=== PATIENT | female | born 1940 | race Caucasian/White ===

== ENCOUNTER 2017-06-30 09:54 | Outpatient (CLI) | payer OTHER | END 2017-06-30 09:57 | disposition home or self-care (01) | LOC: RAD 09:54 | DX: R13.0 Aphagia (principal); Z01.818 Encounter for other preprocedural examination ==

== ENCOUNTER → 2017-06-30 | Outpatient (CLI) | payer OTHER ==
[~2017-06-30] MED LIST: ATORVASTATIN CA10 MG PO; CLORAZEPATE DI7.5 MG PO; EFFEXOR XR150 MG PO; METFORMIN HCL500 MG PO; RAMIPRIL1.25 MG PO; ZANTAC150 M3 PO
== END | disposition home or self-care (01) ==
LOC: LAB 09:47
DX: R19.03 Right lower quadrant abdominal swelling, mass and lump (principal); R97.1 Elevated cancer antigen 125 [CA 125]; Z01.818 Encounter for other preprocedural examination; D64.89 Other specified anemias; N39.0 Urinary tract infection, site not specified; R79.89 Other specified abnormal findings of blood chemistry; R79.1 Abnormal coagulation profile

== ENCOUNTER 2017-07-10 07:03 | Inpatient (IN) | payer OTHER ==
[2017-07-11] MEDS ORDERED: COLACE100 MG PO (07:34)
[2017-07-11] MEDS ORDERED: ULTRAM50 MG PO (07:36)
== END 2017-07-11 12:01 | DRG 743 ==
LOC: CIR.AMB 07:03 → OB/GYN 14:34 → O/R 14:34 → CIR.AMB 15:45 → OB/GYN 17:48
PROVIDERS: Obstetrics & Gynecology Gynecologic Oncology
PROC: 0UT24ZZ Resection of Bilateral Ovaries, Percutaneous Endoscopic Approach (ICD-10-PCS; 2017-07-10)
PROC: 0UT74ZZ Resection of Bilateral Fallopian Tubes, Percutaneous Endoscopic Approach (ICD-10-PCS; 2017-07-10)
PROC: 0DBU4ZZ Excision of Omentum, Percutaneous Endoscopic Approach (ICD-10-PCS; 2017-07-10)
PROC: 0TN74ZZ Release Left Ureter, Percutaneous Endoscopic Approach (ICD-10-PCS; 2017-07-10)
PROC: 0TN64ZZ Release Right Ureter, Percutaneous Endoscopic Approach (ICD-10-PCS; 2017-07-10)
PROC: 0UT94ZZ Resection of Uterus, Percutaneous Endoscopic Approach (ICD-10-PCS; principal; 2017-07-10 15:45)
DX: D25.1 Intramural leiomyoma of uterus (principal); N83.291 Other ovarian cyst, right side; K66.0 Peritoneal adhesions (postprocedural) (postinfection); N72 Inflammatory disease of cervix uteri; D27.1 Benign neoplasm of left ovary; D27.0 Benign neoplasm of right ovary

== ENCOUNTER 2024-09-13 09:13 | Outpatient (CLI) | payer OTHER ==
[~2024-09-13 09:13] MED LIST changes: +COLACE100 MG PO; +ULTRAM50 MG PO
== END 2024-09-13 09:29 | disposition home or self-care (01) ==
LOC: TOM 09:13
DX: R19.5 Other fecal abnormalities (principal)